=== PATIENT | female | born 1970 | race Caucasian/White ===

== ENCOUNTER 2023-03-16 08:48 | Day surgery (SDC) | payer BC ==
[2023-03-16] MEDS ORDERED: LACTATED RINGERS 1,000 ML IV SCH (09:23)
[2023-03-16] MEDS ORDERED: LIDOCAINE 1% (10MG/ML) FOR IV START INTRADERMA PRN (09:23)
[2023-03-16 09:50] VITALS: RESP 16; TEMP 97.5
[2023-03-16] MEDS ORDERED: PROPOFOL 10 MG/ML 20 ML VIAL IV ONE (10:43)
--- NOTE | 2023-03-16 11:00 | P.PCN ---
Date of Procedure: 03/16/23 Procedure(s) Performed: BRIEF HISTORY: Patient is a 52-year-old pleasant white female scheduled for an elective colonoscopy as a part of screening for colon cancer. PROCEDURE PERFORMED: Colonoscopy snare polypectomy. PREOPERATIVE DIAGNOSIS: Screening for colon cancer. IV sedation per Anesthesia. PROCEDURE: After informed consent was obtained, the patient, was brought into the endoscopy unit. IV sedation was administered by Anesthesia under continuous monitoring. Digital rectal examination was normal. Initially the Olympus CF-160 flexible video colonoscope was then inserted in the rectum, gradually advanced into the cecum without any difficulty. Careful examination was performed as the scope was gradually being withdrawn. Ileocecal valve and the appendiceal orifice were visualized and appeared normal. Prep was excellent. Mucosa of the cecum, ascending colon, transverse colon, descending colon appeared normal. In the sigmoid there was a 5 mm sessile polyp removed by cold snare polypectomy. Rest of the, sigmoid colon, and rectum appeared normal. Retroflexion was performed in the rectum and no lesions were seen. The patient tolerated the procedure well. IMPRESSION: 5 mm; sigmoid polyp status post cold snare polypectomy Rest of the colon appeared normal RECOMMENDATIONS: Findings of this examination were discussed with the patient as well as his family. She was advised to follow with the biopsy results. If the biopsy reveals adenoma she can have a repeat colonoscopy in 5 years.
[2023-03-16 11:38] VITALS: BP 121/78; PULSE 86
== END 2023-03-16 11:48 | disposition home or self-care (01) ==
LOC: ORWHC2ENDO 08:48
PROVIDERS: ATTEND Internal Medicine Gastroenterology
DX: Z12.11 Encounter for screening for malignant neoplasm of colon (principal); D12.5 Benign neoplasm of sigmoid colon; Z79.899 Other long term (current) drug therapy
CPT/HCPCS: 88305; 84703; 45385; J2704

== ENCOUNTER → 2023-12-14 | Outpatient (CLI) | payer BC ==
--- NOTE | 2023-12-14 14:23 | XR ---
EXAMINATION TYPE: XR Hip Bilateral Complete DATE OF EXAM: 12/14/2023 COMPARISON: NONE HISTORY: Pain TECHNIQUE: 2 views of each hip submitted FINDINGS: There is no evidence of erosive change or acute fracture. There is moderate narrowing of the left hip joint with hypertrophic changes. Correlate for femoral ac etabular impingement. A degree of left femoral head dysplasia in the differential diagnosis. Right hip demonstrates mild axial narrowing. No erosive changes. Enthesophyte along the right iliac c rest. 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 IMPRESSION: 1. 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 Mild axial arthropathy right hip..
--- NOTE | 2023-12-14 14:24 | XR ---
EXAM TYPE: LUMBAR SPINE X RAY SERIES COMPARISON: NONE HISTORY: Pain TECHNIQUE: 4 views are submitted. FINDINGS: Alignment is anatomic. The pedicles are intact. The transverse processes are intact. There is mult ilevel mild degenerative disc disease with multilevel facet arthropathy most marked at levels L3-S1. Suspect foraminal encroachment at these levels. No significant spondylolisthesis or spondylolysis. SI joints patent. Pedicles intact. 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 IMPRESSION: 1. Multilevel mild degenerative disc disease with advanced facet arthropathy L3-S1. Findings likely r esult in multilevel significant foraminal encroachment. Consider follow-up MRI.
== END | disposition home or self-care (01) ==
LOC: RADXRYALE 13:40
PROVIDERS: ATTEND Internal Medicine
DX: M51.37 Other intervertebral disc degeneration, lumbosacral region (principal); M47.817 Spondylosis without myelopathy or radiculopathy, lumbosacral region; M12.851 Other specific arthropathies, not elsewhere classified, right hip; M12.852 Other specific arthropathies, not elsewhere classified, left hip
CPT/HCPCS: 72110; 73521

== ENCOUNTER → 2024-01-19 | Outpatient (CLI) | payer BC ==
--- NOTE | 2024-01-19 22:11 | MR ---
EXAMINATION TYPE: MR hip LT wo con DATE OF EXAM: 01/19/2024 COMPARISON: Outside pelvic x-ray January 09, 2024 HISTORY: Left hip pain, clicking, locking, Hx dysplasia as a child Standard multiplanar, multisequence MRI departmental protocol Multiplanar, multisequence images of the pelvis focusing on left hip were acquired without contrast. Diffusion weighted imaging was performed. FINDINGS: Small size left greater than right hip joint effusions are seen. Asymmetric moderate to sev ere left hip joint space loss is present. Asymmetric mild to moderate left-sided acetabular spurring is seen. There is loss of the spherical shape particularly along the superior surface in the left hip . No suspicious increased T2 signal or osseous edema. No obvious fragmented bone. Mild increased sign al greater trochanter level bilaterally actually more prominent in the right hip is noted consistent with insertional tendinosis. No groin hernia if identified bilaterally. There are subcentimeter groin lymph nodes seen bilaterally. Muscle bulk is symmetric and within normal limits. Several small nabothian cysts within the cervix are present. No bowel dilatation. Bladder is poorly d istended and suboptimally evaluated. IMPRESSION: Asymmetric increased degenerative change in the left hip is present as detailed above.
--- NOTE | 2024-01-21 09:48 | MR ---
EXAMINATION TYPE: MR lumbar spine wo con DATE OF EXAM: 01/19/2024 COMPARISON: None HISTORY: Low back pain into both sides x2 years CONTRAST: 0 mL intravenous Gadavist. TECHNIQUE: Multiplanar, multisequence images of the lumbar spine were acquired. FINDINGS: L5-S1: No significant disc bulge or disc herniation. No spinal canal stenosis. No foraminal stenosi s. Disc desiccation is present. Facet hypertrophy is present greater on the right. No thecal sac comp ression or neural foraminal stenosis evident L4-L5: No significant disc bulge or disc herniation. No spinal canal stenosis. No foraminal stenosi s. Disc desiccation is present. Facet hypertrophy is present with ligamentum flavum laxity. This is m ild posterior lateral thecal sac compression. L3-L4: No significant disc bulge or disc herniation. No spinal canal stenosis. No foraminal stenosi s. Disc desiccation is present. Facet hypertrophy is present with posterior lateral thecal sac compre ssion. No spinal canal stenosis is present L2-L3: No significant disc bulge or disc herniation. No spinal canal stenosis. No foraminal stenosi s. Disc desiccation is present. Mild facet hypertrophy is present. L1-L2: No significant disc bulge or disc herniation. No spinal canal stenosis. No foraminal stenosi s. Disc hydration is preserved. T12-L1: No significant disc bulge or disc herniation. No spinal canal stenosis. No foraminal stenos is. Hydration is preserved. IMPRESSION: 1. Disc desiccation throughout the lumbar spine. 2. Facet hypertrophy with ligamentum flavum laxity is some mild posterior lateral thecal sac compress ion without spinal canal or foraminal stenosis discussed above.
== END | disposition home or self-care (01) ==
LOC: RADMRIMAIN 17:00
PROVIDERS: ATTEND Orthopaedic Surgery
DX: M16.12 Unilateral primary osteoarthritis, left hip (principal); M47.26 Other spondylosis with radiculopathy, lumbar region; M47.22 Other spondylosis with radiculopathy, cervical region; M24.28 Disorder of ligament, vertebrae
CPT/HCPCS: 72148